=== PATIENT | male | born 1985 | race Hispanic/Latino ===

== ENCOUNTER 2018-01-07 19:09 | Emergency (ER) | payer OTHER ==
[2018-01-07 20:01] VITALS: BP 131/78; PULSE 62; RESP 16; TEMP 97.9; O2SAT 97
[2018-01-07 22:58] LABS: BASO # 0.1 K/uL (0.0-0.2); BASO % 0.8 % (0.0-2.0); EOS # 0.1 K/uL (0.0-0.7); EOS % 0.8 % (0.0-4.0); LYMPH # 2.3 K/uL (1.0-4.3); LYMPH % 31.4 % (20.0-40.0); MEAN CELL VOLUME 93.6 fl (80.0-94.0); MEAN CORPUSCULAR HEMOGLOBIN 31.6 pg (27.0-31.0); MEAN CORPUSCULAR HGB CONC 33.8 g/dL (33.0-37.0); MEAN PLATELET VOLUME 7.9 fl (7.2-11.7); MONO # 0.7 K/uL (0.0-0.8); MONO % 9.2 % (0.0-10.0); NEUT # 4.2 K/uL (1.8-7.0); NEUT % 57.8 % (50.0-75.0); NRBC % 0.1 % (0.0-0.0); RBC 4.75 Mil/uL (4.40-5.90); RED CELL DISTRIBUTION WIDTH 13.7 % (11.5-14.5); WHITE BLOOD COUNT 7.2 K/uL (4.8-10.8)
[2018-01-07 23:05] LABS: ALB/GLOB RATIO 1.2 (1.0-2.1); ALBUMIN 4.4 g/dL (3.5-5.0); ALT/SGPT 184 U/L (21-72); AST/SGOT 96 U/L (17-59); BLOOD UREA NITROGEN 17 mg/dl (9-20); CALCIUM 9.8 mg/dL (8.4-10.2); GFR AFRICAN-AMERICAN > 60; GFR NON-AFRICAN AMERICAN > 60; LIPASE 250 U/L (23-300)
--- NOTE | 2018-01-07 23:14 | ED PDOC ---
HPI: Abdomen Time Seen by Provider: 01/07/18 21:57 Chief Complaint (Nursing): Abdominal Pain Chief Complaint (Provider): Abdominal Pain, Rash History Per: Patient History/Exam Limitations: no limitations Outside of [place] travel?: No Current Symptoms Are (Timing): Still Present Location Of Pain/Discomfort: Epigastric, Periumbilical Quality Of Discomfort: Dull, Aching Associated Symptoms: Nausea (intermittent). denies: Fever, Chills, Vomiting, Diarrhea, Loss Of Appetite, Back Pain, Chest Pain, Constipation, Urinary Symptoms Exacerbating Factors: Movement (exercise/exertion), Food Last Bowel Movement: Today Additional Complaint(s): Patient is a 32 year old male with no PMHx who presents for evaluation of abdominal pain. Patient reports epigastric/periumbilical abdominal pain that has been constant for the past 1.5 months and is described as "dull" and "aching ". Patient states his pain worsens with exertion, activity, and food ingestion. Patient states he took Pepto once to relieve his symptoms but it did not help. He also reports that he has not drank alcohol, coffee, or acidic food in attempts to relieve symptoms but that also did not work. Patient took no medication prior to arrival today. Associated symptoms: intermittent nausea ( none now). Otherwise, patient denies: recent travel, fever, chills, vomiting, diarrhea, chest pain, SOB, cough, hematuria, urinary symptoms, penile discharge , testicular pain, recent travel, new foods, family history of food intolerance , sick contacts, or bodyaches/joint pain. Of note, patient also is requesting evaluation of a rash to his groin. Patient states that three months ago he was treated with Clotrimazole for jock itch which he applied for a month with temporary relief of symptoms. Patient states about 3-4 weeks ago his rash has returned, is sometimes itchy, and not improving with OTC clotrimazole, which he has been applying for the past 5-6 days. Patient reports he had a full STD check in September which was negative. PMD: cannot recall. Past Medical History Reviewed: Historical Data, Nursing Documentation, Vital Signs Vital Signs: Last Vital Signs Temp 97.9 F 01/07/18 19:57 Pulse 62 01/07/18 19:57 Resp 16 01/07/18 19:57 BP 131/78 01/07/18 19:57 Pulse Ox 97 01/08/18 00:53 - Medical History PMH: No Chronic Diseases Comment Only: Chronic Kidney Disease (Denies) - Surgical History Other surgeries: clavicle fracture repair, right knee ACL repair x2, rhinoplasty x2 - Family History Family History: States: Unknown Family Hx - Social History Current smoker - smoking cessation education provided: No Alcohol: Social (but denies alcohol use the past month) Drugs: Denies - Home Medications Home Medications: Ambulatory Orders Medication Instructions Recorded Ketoconazole 2% Cr [Nizoral] 1 appl TP BID #1 tube 01/08/18 - Allergies Allergies/Adverse Reactions: Allergies Allergy/AdvReac Type Severity Reaction Status Date / Time No Known Allergies Allergy Verified 01/07/18 21:58 Review of Systems ROS Statement: Except As Marked, All Systems Reviewed And Found Negative Gastrointestinal: Positive for: Nausea, Abdominal Pain Physical Exam - Reviewed Nursing Documentation Reviewed: Yes Vital Signs Reviewed: Yes - Physical Exam Appears: Positive for: Well, Non-toxic, No Acute Distress Head Exam: Positive for: ATRAUMATIC, NORMOCEPHALIC Skin: Positive for: Normal Color, Warm, Dry Eye Exam: Positive for: EOMI, PERRL Neck: Positive for: Painless ROM, Supple Cardiovascular/Chest: Positive for: Regular Rate, Rhythm Respiratory: Positive for: Normal Breath Sounds. Negative for: Decreased Breath Sounds, Accessory Muscle Use, Respiratory Distress Gastrointestinal/Abdominal: Positive for: Bowel Sounds (active x4), Soft, Tenderness (mild epigastric, periumbilical to deep palpation). Negative for: Mass, Distended, Guarding, Rebound Male Genital Exam: Positive for: normal genitalia (circumcised), erythema ( scattered erythematous, scaling patches to penile shaft, scrotum, and groin (-) excoriations (-) tenderness (-) evidence of cellulitis (-) drainage), other ( Dash RN was my floor coverer for the entite genital exam. ). Negative for: epididymal tenderness, inguinal tenderness, lesions, scrotum tenderness (R), scrotum tenderness (L), urethral discharge Back: Negative for: L CVA Tenderness, R CVA Tenderness, Vertebral Tenderness Extremity: Negative for: Tenderness, Deformity Neurologic/Psych: Positive for: Alert, Oriented (x3), Gait (steady in ED) - Laboratory Results Result Diagrams: 01/07/18 22:50 01/07/18 22:50 Urine dip results: Negative for: Leukocyte Esterase, Blood, Nitrate, Ketones, Glucose, Bilirubin, Protein - ECG O2 Sat by Pulse Oximetry: 97 (RA) Pulse Ox Interpretation: Normal Medical Decision Making Medical Decision Making: Clinical Impression: abdominal pain, nonspecific etiology Plan: -IV access -CBC -CMP -Lipase -Toradol IV -Pepcid IV -Urine Dipstick -CT abdomen/pelvis with IV contrast -Re-evaluation 2340 Labs reviewed and grossly unremarkable. Patient in CT scan. Urine dipstick reviewed with no significant findings. 0035 CT reviewed, radiology report follows EXAM: CT Abdomen and Pelvis With Intravenous Contrast CLINICAL HISTORY: 32 years old, male; Pain; Abdominal pain; Epigastric; Additional info: Epigastric, periumbilical pain. Sent phy. Doc. TECHNIQUE: Axial computed tomography images of the abdomen and pelvis with intravenous contrast. All CT scans at this facility use one or more dose reduction techniques, viz.: automated exposure control; ma/kV adjustment per patient size (including targeted exams where dose is matched to indication; i.e. head); or iterative reconstruction technique. Coronal and sagittal reformatted images were created and reviewed. CONTRAST: 95 mL of [id number] administered intravenously. COMPARISON: No relevant prior studies available. FINDINGS: Lower thorax: Minimal atelectasis/scarring. ABDOMEN: Liver: Fatty infiltration. Gallbladder and bile ducts: No calcified stones. No ductal dilation. Pancreas: No ductal dilation. No mass. Spleen: No splenomegaly. Adrenals: No mass. Kidneys and ureters: No mass. No hydronephrosis. Stomach and bowel: No definite mural thickening. No obstruction. Appendix: Normal caliber. No definite inflammation. PELVIS: Bladder: Unremarkable. Reproductive: Unremarkable as visualized. ABDOMEN and PELVIS: Intraperitoneal space: No significant fluid collection. No free air. JON SHAMAR | Final Radiology Report CONFIDENTIALITY STATEMENT This report is intended only for use by the referring physician, and only in accordance with law. If you received this in error, call [phone]. Page 2 of 2 Bones/joints: Chronic L5 pars defects with anterolisthesis. Schmorl's nodes at few levels. No acute fracture. Soft tissues: Unremarkable. Vasculature: Unremarkable. No aneurysm. Lymph nodes: Few subcentimeter short axis mesenteric lymph nodes, nonspecific. IMPRESSION: 1. No definite acute intraabdominal abnormality. 2. Incidental/non-acute findings are described above. Thank you for allowing us to participate in the care of your patient. Dictated and Authenticated by: Arya Yip MD 01/08/2018 12:31 AM Eastern Time ([place] & [place]) 0040 On re-evaluation, patient reports improvement of symptoms, denies any abdominal pain at present. On exam, patient remains AAOx3, in no acute distress. On exam, neck is supple, lungs CTA, cardiac RRR, abdomen is soft and non-tender, neuro exam shows no focal findings. Diagnostic results d/w the patient in great detail. Dx of abdominal pain of nonspecific etiology d/w the patient. Based on history, exam and diagnostic results plan will be for discharge and outpatient follow up. Advised to follow up with primary care physician in 1-2 days without fail. Advised to take OTC medication as needed. Return to the emergency room at any time for any new or worsening symptoms. Patient states he fully agrees with and understands discharge instructions. States that he agrees with the plan and disposition. Verbalized and repeated discharge instructions and plan. I have given the patient opportunity to ask any additional questions. Disposition - Clinical Impression Clinical Impression: Tinea cruris, Abdominal pain, Nausea - Patient ED Disposition Is Patient to be Admitted: No Counseled Patient/Family Regarding: Studies Performed, Diagnosis, Need For Followup, Rx Given - Disposition Referrals: Chris Jade MD [Medical Doctor] - Disposition: Routine/Home Disposition Time: 00:39 Condition: STABLE Prescriptions: Ketoconazole 2% Cr [Nizoral] 1 appl TP BID #1 tube Instructions: Peptic Ulcers, Jock Itch, Dyspepsia, Acute Abdomen (Belly Pain), Stomach Ache and Stomach Upset Forms: [employer] (Yakut) Print Language: URUGUAYAN - POA Present On Arrival: None Results - Lab Results Lab Results: 01/07/18 01/07/18 22:50 22:50 WBC 7.2 RBC 4.75 Hgb 15.0 Hct 44.5 MCV 93.6 MCH 31.6 H MCHC 33.8 RDW 13.7 Plt Count 220 MPV 7.9 Neut % (Auto) 57.8 Lymph % (Auto) 31.4 [place] % (Auto) 9.2 Eos % (Auto) 0.8 Baso % (Auto) 0.8 Neut # (Auto) 4.2 Lymph # (Auto) 2.3 [place] # (Auto) 0.7 Eos # (Auto) 0.1 Baso # (Auto) 0.1 Sodium 142 Potassium 4.5 Chloride 100 Carbon Dioxide 28 Anion Gap 19 BUN 17 Creatinine 1.1 Est GFR ( Amer) > 60 Est GFR (Non-Af Amer) > 60 Random Glucose 83 Calcium 9.8 Total Bilirubin 0.8 AST 96 H ALT 184 H Alkaline Phosphatase 41 Total Protein 8.1 Albumin 4.4 Globulin 3.7 Albumin/Globulin Ratio 1.2 Lipase 250
[2018-01-07] MEDS ORDERED: Iohexol 300 100 ML IJ ONE (23:30)
[2018-01-07] MEDS ORDERED: Sodium Chloride 0.9% 100 ML ONE (23:30)
--- NOTE | 2018-01-08 00:31 | CT ---
EXAM: CT Abdomen and Pelvis With Intravenous Contrast CLINICAL HISTORY: 32 years old, male; Pain; Abdominal pain; Epigastric; Additional info: Epigastric, periumbilical pain. Sent phy. Doc. TECHNIQUE: Axial computed tomography images of the abdomen and pelvis with intravenous contrast. All CT scans at this facility use one or more dose reduction techniques, viz.: automated exposure control; ma/kV adjustment per patient size (including targeted exams where dose is matched to indication; i.e. head); or iterative reconstruction technique. Coronal and sagittal reformatted images were created and reviewed. CONTRAST: 95 mL of [id number] administered intravenously. COMPARISON: No relevant prior studies available. FINDINGS: Lower thorax: Minimal atelectasis/scarring. ABDOMEN: Liver: Fatty infiltration. Gallbladder and bile ducts: No calcified stones. No ductal dilation. Pancreas: No ductal dilation. No mass. Spleen: No splenomegaly. Adrenals: No mass. Kidneys and ureters: No mass. No hydronephrosis. Stomach and bowel: No definite mural thickening. No obstruction. Appendix: Normal caliber. No definite inflammation. PELVIS: Bladder: Unremarkable. Reproductive: Unremarkable as visualized. ABDOMEN and PELVIS: Intraperitoneal space: No significant fluid collection. No free air. Bones/joints: Chronic L5 pars defects with anterolisthesis. Schmorl's nodes at few levels. No acute fracture. Soft tissues: Unremarkable. Vasculature: Unremarkable. No aneurysm. Lymph nodes: Few subcentimeter short axis mesenteric lymph nodes, nonspecific. IMPRESSION: 1. No definite acute intraabdominal abnormality. 2. Incidental/non-acute findings are described above.
== END 2018-01-08 00:58 | disposition home or self-care (01) ==
LOC: H.ER 19:09
DX: R10.9 Unspecified abdominal pain (principal); R11.0 Nausea; B35.6 Tinea cruris
CPT/HCPCS: 74177; 80053; 83690; 85025; 96374; 96375; 99283; J1885; Q9967